=== PATIENT | female | born 1995 | race Caucasian/White ===

== ENCOUNTER 2017-02-07 14:29 | Emergency (ER) | payer MEDICAID ==
[~2017-02-07] VITALS: Ht 144.8 cm; Wt 38.6 kg
[2017-02-07 14:29] VITALS: BP_SYST 102
[2017-02-07] MEDS ORDERED: IBUPROFEN 400 MG TABLET PO ONE (15:45)
[2017-02-07 15:54] LABS: BILIRUBIN,URINE NEGATIVE (NEGATIVE); BLOOD, URINE NEGATIVE (NEGATIVE); CLARITY/URINE CLEAR (CLEAR); COLOR,URINE YELLOW (YELLOW); GLUCOSE,URINE NEGATIVE (NEGATIVE); KETONES,URINE NEGATIVE (NEGATIVE); LEUKOCYTE ESTERASE ,URINE NEGATIVE (NEGATIVE); NITRITE, URINE NEGATIVE (NEGATIVE); PROTEIN URINE NEGATIVE (NEGATIVE); UROBILINOGEN,URINE 0.2 (0.2-1.0)
[2017-02-07] MEDS ORDERED: MAGNESIUM CITRATE 300 ML ORAL SOLUTION PO ONE (16:30)
[2017-02-07 17:00] VITALS: BP_SYST 105
== END 2017-02-07 17:00 | disposition home or self-care (01) ==
LOC: SED 14:29
DX: R10.84 Generalized abdominal pain (principal); F41.9 Anxiety disorder, unspecified
CPT/HCPCS: 71010; 74000-TC; 81003; 99285